=== PATIENT | male | born 1960 | race Hispanic/Latino ===

== ENCOUNTER → 2025-05-22 | Outpatient (REF) | payer MEDICARE ==
[2025-05-22 09:07] LABS: EST GLOMERULAR FILTRATION RATE 28.0 ML/MIN (>=60)
== END ==
LOC: CT 07:49
PROVIDERS: ATTEND Internal Medicine Cardiovascular Disease
DX: I65.22 Occlusion and stenosis of left carotid artery (principal); I73.9 Peripheral vascular disease, unspecified; I63.9 Cerebral infarction, unspecified; I25.118 Atherosclerotic heart disease of native coronary artery with other forms of angina pectoris
CPT/HCPCS: 36415; 82565; 84520